=== PATIENT | male | born 1955 | race Caucasian/White ===

== ENCOUNTER 2018-01-30 08:30 | Outpatient (CLI) | payer OTHER ==
[2018-01-30] MEDS ORDERED: Gadobenate Dimeglumine 529 MG/1 ML (20ML VIAL) ONE (12:58)
--- NOTE | 2018-01-30 13:28 | MRI ---
MRI OF THE PROSTATE WITHOUT AND WITH CONTRAST: History: Elevated PSA. Technique: Multiplanar, multisequence MRI images were obtained of the prostate without and with IV co ntrast. FINDINGS: There is moderate hypertrophy of the central gland consistent with BPH. In the right aspect of the mi d gland near there is a 1.2 cm area of low T2 signal. No other suspicious abnormality is seen in the central gland. No abnormality is seen in the peripheral zone of the prostate. No restricted diffusion or low signal seen on the ADC map within the peripheral zone. Seminal vesicles are intact. No pelvic adenopathy is seen. No marrow signal abnormality is present. V ascular bundles appear intact. IMPRESSION: There is a lesion in the central zone of the prostate which is suspicious. This lesion would be merari cterized as a PIRADS category 4 lesion. There is a high likelihood that a clinically significant canc er is present. POS: ANAY
== END 2018-01-30 08:31 | disposition home or self-care (01) ==
LOC: TBSIIMAG 08:30
PROVIDERS: ATTEND Urology
DX: R97.20 Elevated prostate specific antigen [PSA] (principal)
CPT/HCPCS: 72197; 82565; A9579

== ENCOUNTER 2018-02-24 08:56 | Outpatient (CLI) | payer OTHER ==
[2018-02-24 10:57] LABS: Hemoglobin 15.5 g/dL (14.0-18.0); Mean Corpuscular HGB CONC 35.6 g/dL (32.0-36.0); Mean Corpuscular Hemoglobin 30.2 pg (27.0-31.0); Mean Corpuscular Volume 84.9 fL (78.0-98.0); Mean Platelet Volume 7.9 fL (7.4-10.4); Platelet Count 225 thou/uL (130-400); Red Blood Cell (RBC) Count 5.14 mill/uL (4.70-6.10); White Blood Cell (WBC) Count 7.5 thou/uL (4.8-10.8)
[2018-02-24 10:59] LABS: Bilirubin Negative (Negative); Blood, Urine Negative (Negative); Clarity CLEAR (Clear); Glucose, Urine (Dipstick) Negative (Negative); INR-International Normal Ratio 0.9; Leukocyte Negative (Negative); Nitrite Negative (Negative); Protein, Urine (Dipstick) Negative (Neg-Trace); Prothrombin Time 12.4 SEC (12.0-14.7); Specific Gravity, Urine 1.008 (1.002-1.036); Urobilinogen 0.2 mg/dL (0.2-1.0); pH, Urine 6.5 (5.0-9.0)
[2018-02-24 11:00] LABS: Bacteria/HPF None Seen HPF (None Seen); Hyaline Casts/LPF 0-3 HYALINE CAST LPF (0-3 Hyaline); RBC/HPF 0-3 HPF (0-3); Squamous Epithelial None Seen HPF (0-3); WBC/HPF 0-3 HPF (0-3)
[2018-02-24 11:04] LABS: PTT 28.2 SEC (22.9-36.1)
[2018-02-24 11:15] LABS: ALT (SGPT) 15 U/L (8-55); AST (SGOT) 15 U/L (5-34); Albumin 4.3 g/dL (3.4-4.8); Alkaline Phosphatase 54 U/L (40-150); Anion Gap 12 mmol/L (10-20); BUN (Urea Nitrogen) 12 mg/dL (8.4-25.7); Bilirubin, Total 0.5 mg/dL (0.2-1.2); Calc. Creatinine Clearance 0 mL/min (70-130); Calcium 9.2 mg/dL (7.8-10.44); Carbon Dioxide 23 mmol/L (23-31); Chloride 109 mmol/L (98-107); Estimated GFR-MDRD 73; Globulin 2.7 g/dL (2.4-3.5); Glucose 85 mg/dL (80-115); Potassium 4.6 mmol/L (3.5-5.1); Sodium 139 mmol/L (136-145)
--- NOTE | 2018-02-24 22:38 | EKG ---
Test Reason : Blood Pressure : / mmHG Vent. Rate : 054 BPM Atrial Rate : 054 BPM P-R Int : 194 ms QRS Dur : 090 ms QT Int : 406 ms P-R-T Axes : 063 074 046 degrees QTc Int : 385 ms Sinus bradycardia Otherwise normal ECG No previous ECGs available Confirmed by Bertram COWART ([id number]) on 02/24/2018 10:38:04 PM Referred By: SOFIA Confirmed By:Bertram COWART
== END 2018-02-24 08:57 | disposition home or self-care (01) ==
LOC: LABBT 08:56
PROVIDERS: ATTEND Urology
DX: Z01.818 Encounter for other preprocedural examination (principal); N40.1 Benign prostatic hyperplasia with lower urinary tract symptoms; R97.20 Elevated prostate specific antigen [PSA]
CPT/HCPCS: 80053; 81001; 85027; 85610; 85730; 87086; 93005; 93010

== ENCOUNTER 2018-03-11 10:22 | Day surgery (SDC) | payer OTHER ==
[2018-02-24 09:34] VITALS: BMI 24.9
[2018-03-11] MEDS ORDERED: cefTRIAXone\\ROCEPHIN 1 GM VIAL ONE (11:02)
[2018-03-11] MEDS ORDERED: Sodium Chloride 0.9% 100 ML ONE (11:03)
[2018-03-11] MEDS ORDERED: Fentanyl 100 MCG/2 ML VIAL ONE (14:16)
[2018-03-11] MEDS ORDERED: Midazolam HCl 2 mg/2 ml Vial ONE (14:16)
[2018-03-11] MEDS ORDERED: ePHEDrine/0.9% NaCl/PF SYRINGE 50 mg/10 ml ONE (15:10)
[2018-03-11] MEDS ORDERED: Ondansetron HCl/PF 4 MG/2 ML Vial ONE (15:10)
[2018-03-11] MEDS ORDERED: Lidocaine 1% PF 5 ML VIAL ONE (15:10)
[2018-03-11] MEDS ORDERED: PROPOFOL 200 MG/20 ML VIAL ONE (15:10)
--- NOTE | 2018-03-11 19:56 | OP ---
DATE OF PROCEDURE: 03/11/2018 SERVICE: Urology. SURGEON: Johnson Celaya M.D. PREOPERATIVE DIAGNOSIS: Elevated PSA. POSTOPERATIVE DIAGNOSIS: Elevated PSA. PROCEDURE PERFORMED: MRI, ultrasound fusion prostate guided biopsy. INDICATIONS FOR PROCEDURE: Mr. Barrios is a 63-year-old white male with an elevated PSA, now up to 11.54. 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 His most recent MRI demonstrated a BI-RADS 4 lesion in t he central zone near the right side of the prostate. He is now coming in for MRI, ultrasound guided prostate biopsy. DESCRIPTION OF PROCEDURE: After identification of armband and verification of consent, the patient w as brought back to the operating room where he underwent general anesthesia with an LMA. He was in t he left lateral decubitus position and prepped for the procedure. The MRI fusion UroNav system was p ositioned over the patient. The data was collected and the fusion process was done to superimpose th e MRI images on to the ultrasound. The lesion was apparent as a hypoechoic spot on ultrasound as wel l as a targeted lesion on MRI. Four biopsies were taken in this area. Standard biopsies were taken throughout the rest of the prostate in the standard 12 core template manner. Measurements of the pro state were taken after the procedure which measured approximately 70.4 mL. This does appear in some discrepancy to the prior biopsies which measured approximately in about 41-45 mL. Upon completion, t he ultrasound probe was removed. There was no heavy bleeding noted from the rectum. The patient was awakened and taken to PACU for recovery in stable condition. COMPLICATIONS: None. ESTIMATED BLOOD LOSS: Approximately 50 mL RETAINED TUBES AND DRAINS: None. SPECIMENS: Prostate biopsies. DISPOSITION: Patient will be discharged home and follow up with me in approximately 1-2 weeks for a postop check and go over biopsy results.
== END 2018-03-11 20:03 | disposition home or self-care (01) ==
LOC: SDC 10:22
PROVIDERS: ATTEND Urology
PROC: 0VB03ZX Excision of Prostate, Percutaneous Approach, Diagnostic (ICD-10-PCS; principal; 2018-03-11)
DX: N41.1 Chronic prostatitis (principal); Z79.899 Other long term (current) drug therapy
CPT/HCPCS: 88305; 88341; 88342; J0696; J2001; J2250; J2405; J2704; J3010; J7050